=== PATIENT | female | born 1950 | race Caucasian/White ===

== ENCOUNTER 2017-11-15 13:40 | Day surgery (SDC) | payer MEDICARE, BC ==
[2017-11-15] MEDS ORDERED: PRAV20TA65 PO (13:52)
[2017-11-15] MEDS ORDERED: ROPI2TAB28 PO (13:52)
--- NOTE | 2017-11-15 13:56 | ER Report ---
History and Physical Time Seen By MD: 13:56 Hx. of Stated Complaint: PT HAD STEAK YESTERDAY AND FEELS LIKE IT IS STUCK IN HER THROAT. PT IS NOT HAVING ANY RESPIRATORY DISTRESS, OR TROUBLE BREATHING BUT ANY TIME SHE TRIES TO EAT OR DRINK ANYTHING IT FEELS LIKE IT JUST SITS ON TOP OF WHATS BLOCKING HER THROAT. HPI/ROS CHIEF COMPLAINT: steak stuck in esophagus HISTORY OF PRESENT ILLNESS: This is a 67 year old female. She is visiting here from [place]. Eating steak last night. Small piece on the first bite is stuck in the upper esophagus. She has been waiting to see if it would pass. She cannot eat or drink anything and ends up spitting out fluid she tries to drink. Has had this once before and needed endoscopy to remove the food. No problems with reflux or heartburn. No shortness of breath or chest pain. No abdominal pain. Allergies: Coded Allergies: No Known Drug Allergies (Unverified , 11/15/17) Home Meds Active Scripts Pantoprazole Sodium (PANTOPRAZOLE SODIUM) 40 Mg Tablet.dr, 1 TAB PO DAILY, #60 TAB 3 Refills Take 1 tablet first thing every morning before eating and wait 30 minutes before eating. Prov:OSMAN BENTLEY MD 11/15/17 Reported Medications Pravastatin Sodium (PRAVACHOL) 20 Mg Tablet, 10 MG PO QDAY, TAB 11/15/17 Ropinirole Hcl (ROPINIROLE HCL) 2 Mg Tablet, 2 MG PO TID 11/15/17 Reviewed Nurses Notes: Yes Hx Substance Use Disorder: No Hx Alcohol Use: No Constitutional Vital Sign - Last 24 Hours 11/15/17 13:44 Temp 98.5 Pulse 88 Resp 18 B/P (MAP) 174/88 Pulse Ox 96 O2 Delivery Room Air Physical Exam General Appearance: The patient is alert, has no immediate need for airway protection and no current signs of toxicity. ENT: Normal oral mucosa. Moist mucous membranes. Neck: Neck is supple and non tender. Respiratory: Chest is non tender, lungs are clear to auscultation. Cardiac: regular rate and rhythm Gastrointestinal: Abdomen is soft and non tender, no masses, bowel sounds normal. DIFFERENTIAL DIAGNOSIS: After history and physical exam differential diagnosis was considered for food impaction in esophagus. Medical Decision Making ED Course/Re-evaluation Clinical Indication for ER IV: Hydration, IV Access ED Course Attempted IV glucagon followed by drinking some carbonated drink. Unsuccessful. Dr. Bentley consulted. He came to the ER to see her and then took her to the OR for upper endoscopy to remove the impacted food bolus. Decision to Disposition Date: Nov 15, 2017 Decision to Disposition Time: 16:00 Depart Departure Latest Vital Signs Vital Signs Date Time Temp Pulse Resp B/P (MAP) Pulse Ox O2 Delivery O2 Flow Rate FiO2 11/15/17 13:44 98.5 88 18 174/88 96 Room Air Impression: Primary Impression: Esophageal obstruction due to food impaction Condition: Condition Unchanged Disposition: ADMIT FROM ER TO OR New Scripts Pantoprazole Sodium (PANTOPRAZOLE SODIUM) 40 Mg Tablet.dr 1 TAB PO DAILY, #60 TAB 3 Refills Take 1 tablet first thing every morning before eating and wait 30 minutes before eating. Prov: OSMAN BENTLEY MD 11/15/17 LILIAN VASQUES MD Nov 15, 2017 13:56
[2017-11-15] MEDS ORDERED: GLUCAGON 1 MG KIT IV ONE (14:10)
[2017-11-15] MEDS ORDERED: NS(*) 0.9% 1000 ML BAG 1,000 ML IV ONE (14:10)
[2017-11-15] MEDS ORDERED: FAMOTIDINE(*) 20MG/50ML PREMIX 0 ML IVPB ONE (15:56)
[2017-11-15] MEDS ORDERED: NORMOSOL R SOLN(*) 1000 ML BAG 1,000 ML IV ONE (15:56)
[2017-11-15] MEDS ORDERED: PROPOFOL EMUL(*) 10MG/ML 20 ML 20 ML ONE (16:06)
[2017-11-15] MEDS ORDERED: LIDOCAINE MPF 1% 5 ML VIAL ONE (16:06)
--- NOTE | 2017-11-15 16:06 | Gen Surgery History & Physical ---
History of Present Illness Chief Complaint Food stuck in esophagus History of Present Illness 67-year-old female presents to the emergency room with a one-day history of food stuck in her esophagus. She was eating dinner last night and a chunk of steak became lodged in her esophagus and she has been unable to clear it since then. This occurred one time before about 6 years ago and required endoscopic removal. She is not normally on stomach acid reducing medications and she has no significant history of reflux symptoms. She doesn't even have dysphagia regularly. 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 History Problems: (1) Hyperlipidemia Status: Chronic (2) Restless leg syndrome Status: Chronic Home Meds Reported Medications Pravastatin Sodium (PRAVACHOL) 20 Mg Tablet, 10 MG PO QDAY, TAB 11/15/17 Ropinirole Hcl (ROPINIROLE HCL) 2 Mg Tablet, 2 MG PO TID 11/15/17 Allergies: Coded Allergies: No Known Drug Allergies (Unverified , 11/15/17) Review of Systems All Systems Reviewed/Normal: Yes, Except as Noted Exam General Appearance: Alert, Awake, No Acute Distress, Afebrile Neuro: No Gross deficits Eyes: PERRLA Cardiovascular: Regular Rate and Rhythm Respiratory: Clear to Auscultation GI: Abd Soft and Non-Tender Extremities: Warm, Perfused Assessment and Plan Problems: (1) Esophageal obstruction due to food impaction Status: Acute Assessment & Plan: 11/15/17: We will proceed with endoscopic clearance of her esophagus to remove the meat that impacted there. I have explained the procedure to her in great detail as well as the alternatives, risks, and expected recovery. She indicates her understanding of this discussion and her questions have been answered. She would like to proceed with this procedure. We' ll then start PPI therapy afterwards and she should follow up with her PCM for further management and referral when she returns to her home area. I would recommend an upper GI and repeat endoscopy after she has healed from this incident. Condition Stable Time Spent: < 30 min Venous Thromboembolism VTE Risk Physician Assess for VTE Risk: Yes Patient's VTE Risk: Low VTE Diagnostic Test 2 Days Prior to Admit: No Antithrombotics Is Pt On Any Antithrombotics?: No OSMAN BENTLEY MD Nov 15, 2017 16:06
[2017-11-15 16:08] VITALS: BP 143/74
[2017-11-15] MEDS ORDERED: fentaNYL CITR 100 MCG/2 ML AMP ONE (16:25)
[2017-11-15] MEDS ORDERED: ROCURONIUM BROM 10 MG/ML 10 ML ONE (16:35)
[2017-11-15] MEDS ORDERED: PANT40TA65 PO (16:58)
--- NOTE | 2017-11-15 17:04 | Short(Outpt) Discharge Summary ---
Discharge Summary Reason for Hosp/Final Diag: (1) Esophageal obstruction due to food impaction Status: Acute Hospital Course & Plan: 11/15/17: We will proceed with endoscopic clearance of her esophagus to remove the meat that impacted there. I have explained the procedure to her in great detail as well as the alternatives, risks, and expected recovery. She indicates her understanding of this discussion and her questions have been answered. She would like to proceed with this procedure. We' ll then start PPI therapy afterwards and she should follow up with her PCM for further management and referral when she returns to her home area. I would recommend an upper GI and repeat endoscopy after she has healed from this incident. 11/15/17: EGD with impacted meat completed without problems. Departure Discharge to: Home, Self Care Discharge Instructions Home Meds Active Scripts Pantoprazole Sodium (PANTOPRAZOLE SODIUM) 40 Mg Tablet.dr, 1 TAB PO DAILY, #60 TAB 3 Refills Take 1 tablet first thing every morning before eating and wait 30 minutes before eating. Prov:OSMAN BENTLEY MD 11/15/17 Reported Medications Pravastatin Sodium (PRAVACHOL) 20 Mg Tablet, 10 MG PO QDAY, TAB 11/15/17 Ropinirole Hcl (ROPINIROLE HCL) 2 Mg Tablet, 2 MG PO TID 11/15/17 Diet: Regular Activity: As Tolerated Special Instructions: The meat was removed from your esophagus without any problems. I did see inflamation in your lower esophagus suspicous for acid reflux which is what also may be contributing to the reason the meat became lodged in your esophagus. I recommend that you start an acid reducing medication which I've prescribed for you. It is called pantoprazole and you should take 1 tablet first thing every morning and then don't eat for 30 minutes after taking this medication. I also recommend that you have another upper endoscopy in 6-8 weeks to reassess your esophagus and even to perform biopsies of your lower esophagus to look for a precancerous condition called Munguia's esophagus. I didn't perform any biopsies today as, in general, I don't perform biopsies during emergent endoscopy where I have to remove a foreign body due to risk of perforation. OSMAN BENTLEY MD Nov 15, 2017 17:04
== END 2017-11-15 18:00 | disposition home or self-care (01) ==
LOC: ER 13:58 → OR 15:56
PROVIDERS: ATTEND Surgery
DX: K22.2 Esophageal obstruction (principal)
CPT/HCPCS: 43247; 96365; 99284; J1610; J2001; J2704; J3010; J7030